=== PATIENT | female | born 2000 | race Caucasian/White ===

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

== ENCOUNTER 2019-04-30 16:06 | Emergency (ER) | payer OTHER ==
[~2019-04-30] VITALS: Ht 165.1 cm; Wt 59.0 kg
[~2019-04-30 16:06] MED LIST changes: +AMOXICILLIN 50500 MG PO
[2019-04-30 16:13] VITALS: BP 127/71
[2019-04-30] MEDS ORDERED: MEDROLDOSEPACK PO (16:53)
[2019-04-30] MEDS ORDERED: CLOTRIMAZOLE 1%15 G1 TOP (16:56)
[2019-04-30] MEDS ORDERED: SELENIUM SULFI180 M1 TOP (16:56)
[2019-04-30] MEDS ORDERED: MEDROL DOSPAK21 TA1 PO (16:57)
[2019-04-30] MEDS ORDERED: PREDNISONE 5 MG5 MG PO (16:59)
== END 2019-04-30 17:05 | disposition home or self-care (01) ==
LOC: M.ERS 16:06
DX: B35.6 Tinea cruris (principal)

== ENCOUNTER 2019-05-22 14:29 | Emergency (ER) | payer OTHER ==
[~2019-05-22] VITALS: Ht 165.1 cm; Wt 61.2 kg
[~2019-05-22 14:29] MED LIST changes: +CLOTRIMAZOLE 1%15 G1 TOP; +MEDROL DOSPAK21 TA1 PO; +PREDNISONE 5 MG5 MG PO; +SELENIUM SULFI180 M1 TOP
[2019-05-22] MEDS ORDERED: TESSALON PERLE100 MG PO (15:08)
[2019-05-22] MEDS ORDERED: ZPAK PO (15:08)
[2019-05-22] MEDS ORDERED: MEDROLDOSEPACK PO (15:08)
[2019-05-22] MEDS ORDERED: PROAIR HFA8.5 GM INH (15:08)
[2019-05-22 15:31] LABS: ABSOLUTE BASOPHILS 0.1 thou/uL (0.0-0.2); ABSOLUTE EOSINOPHILS 0.1 thou/uL (0.0-0.7); ABSOLUTE LYMPHOCYTES 1.9 thou/uL (0.8-5.3); ABSOLUTE MONOCYTES 0.5 thou/uL (0.0-1.2); BASOPHILS 0.8 %; EOSINOPHILS 1.7 %; HEMOGLOBIN 12.9 gm/dL (12.0-15.0); LYMPHOCYTES 21.9 %; MCH 28.2 pg (26.0-34.0); MCHC 33.9 g/dL (28.0-37.0); MCV 83.2 fL (80.0-100.0); MONOCYTES 5.5 %; MPV 8.5 fl. (7.2-11.1); NUCLEATED RBCS 0 /100WBC; PLATELET COUNT* 271 thou/uL (150-400); POLYS 70.1 %; RBC 4.56 mil/uL (4.20-5.00); RDW-CV 14.8 % (10.5-14.5); WBC 8.6 thou/uL (4.0-11.0)
[2019-05-22 15:39] LABS: CALCIUM 9.2 mg/dL (8.5-10.1); CREATININE 0.8 mg/dL (0.6-1.3); POTASSIUM 4.2 mmol/L (3.5-5.1)
[2019-05-22 15:44] LABS: ALBUMIN 4.1 g/dL (3.4-5.0); TOTAL BILIRUBIN 0.4 mg/dL (<0.1-1.0); TOTAL PROTEIN 7.7 g/dL (6.4-8.2)
[2019-05-22 16:00] VITALS: BP 113/55
== END 2019-05-22 16:00 | disposition home or self-care (01) ==
LOC: M.ERS 14:29
PROVIDERS: Physician Assistant
DX: J20.9 Acute bronchitis, unspecified (principal)

== ENCOUNTER 2019-09-22 09:02 | Emergency (ER) | payer OTHER ==
[~2019-09-22] VITALS: Ht 165.1 cm; Wt 61.2 kg
[~2019-09-22 09:02] MED LIST changes: +TESSALON PERLE100 MG PO; +ZPAK PO
[2019-09-22 09:17] LABS: URINE BILIRUBIN NEGATIVE (Negative); URINE BLOOD NEGATIVE (Negative); URINE CLARITY CLEAR; URINE COLOR YELLOW; URINE GLUCOSE-RANDOM NEGATIVE (Negative); URINE KETONES TRACE (Negative); URINE LEUKOCYTES-REFLEX TRACE (Negative); URINE NITRITE-REFLEX NEGATIVE (Negative); URINE PROTEIN 2+ (Negative); URINE SPECIFIC GRAVITY >= 1.030 (1.005-1.030)
[2019-09-22 09:20] LABS: ABSOLUTE EOSINOPHILS 0.1 thou/uL (0.0-0.7); ABSOLUTE LYMPHOCYTES 1.5 thou/uL (0.8-5.3); ABSOLUTE MONOCYTES 0.3 thou/uL (0.0-1.2); ABSOLUTE NEUTROPHILS 5.3 thou/uL (1.6-8.1); BASOPHILS 0.4 %; EOSINOPHILS 0.8 %; HEMATOCRIT 38.4 % (37.0-47.0); HEMOGLOBIN 13.1 gm/dL (12.0-15.0); LYMPHOCYTES 21.1 %; MCH 28.7 pg (26.0-34.0); MCHC 34.2 g/dL (28.0-37.0); MCV 83.9 fL (80.0-100.0); MONOCYTES 3.5 %; NUCLEATED RBCS 0 /100WBC; PLATELET COUNT* 211 thou/uL (150-400); POLYS 74.2 %; RBC 4.57 mil/uL (4.20-5.00); RDW-CV 14.1 % (10.5-14.5); WBC 7.1 thou/uL (4.0-11.0)
[2019-09-22 09:32] LABS: CALCIUM 8.2 mg/dL (8.5-10.1); CREATININE 0.8 mg/dL (0.6-1.3); POTASSIUM 3.7 mmol/L (3.5-5.1)
[2019-09-22 09:43] LABS: ALBUMIN 3.6 g/dL (3.4-5.0); TOTAL BILIRUBIN 0.4 mg/dL (<0.1-1.0); TOTAL PROTEIN 7.2 g/dL (6.4-8.2)
[2019-09-22] MEDS ORDERED: PROTONIX40 M1 PO (09:43)
[2019-09-22 09:45] LABS: BACTERIA-REFLEX 1-9 Few /HPF (None Seen); CASTS None Seen /LPF (None Seen); CRYSTALS None Seen /LPF (None Seen); MUCUS 4-6 Moderate strn/LPF (None Seen); SQUAMOUS >10 Many /LPF (0-3); URINE RBC 3-10 Few /HPF (0-2); URINE WBC-REFLEX 0-5 Rare /HPF (0-5)
[2019-09-22 09:46] VITALS: BP 104/76
== END 2019-09-22 09:46 | disposition home or self-care (01) ==
LOC: M.ERS 09:02
PROVIDERS: Family Medicine
DX: R10.9 Unspecified abdominal pain (principal)

== ENCOUNTER 2019-10-04 07:21 | Emergency (ER) | payer OTHER ==
[~2019-10-04] VITALS: Ht 165.1 cm; Wt 59.0 kg
[~2019-10-04 07:21] MED LIST changes: +PROTONIX40 M1 PO
[2019-10-04 07:28] VITALS: BP 117/61
== END 2019-10-04 07:40 | disposition home or self-care (01) ==
LOC: M.ERS 07:21
DX: K29.70 Gastritis, unspecified, without bleeding (principal)